=== PATIENT | male | born 1990 | race Caucasian/White ===

== ENCOUNTER 2017-07-10 05:00 | Emergency (ER) | payer BC ==
[~2017-07-10] VITALS: Ht 180.3 cm; Wt 63.5 kg
[~2017-07-10 05:00] MED LIST: FLEXERIL PO; IBUPROFEN 800800 M1 PO; MEDROLDOSEPACK PO; MOBIC7.5 M1 PO; NORCO 5-325 TA1 EACH PO
[2017-07-10] MEDS ORDERED: FLEXERIL (05:13)
[2017-07-10] MEDS ORDERED: EC-NAPROSYN500 M1 PO (06:25)
[2017-07-10] MEDS ORDERED: HYDROCODON-ACE1 EAC7 PO (06:25)
[2017-07-10 06:41] VITALS: BP 119/61
== END 2017-07-10 06:41 | disposition home or self-care (01) ==
LOC: M.ERS 05:00
DX: M54.9 Dorsalgia, unspecified (principal)

== ENCOUNTER 2017-07-23 12:32 | Emergency (ER) | payer BC ==
[~2017-07-23] VITALS: Ht 180.3 cm; Wt 63.5 kg
[~2017-07-23 12:32] MED LIST changes: +EC-NAPROSYN500 M1 PO; +FLEXERIL; +HYDROCODON-ACE1 EAC7 PO
[2017-07-23 13:26] LABS: URINE BILIRUBIN NEGATIVE (Negative); URINE BLOOD NEGATIVE (Negative); URINE CLARITY CLEAR; URINE COLOR YELLOW; URINE GLUCOSE-RANDOM NEGATIVE (Negative); URINE KETONES NEGATIVE (Negative); URINE LEUKOCYTES-REFLEX NEGATIVE (Negative); URINE NITRITE-REFLEX NEGATIVE (Negative); URINE PROTEIN NEGATIVE (Negative); URINE SPECIFIC GRAVITY >= 1.030 (1.005-1.030); URINE UROBILINOGEN 0.2 E.U./dl (0.2-1.0)
[2017-07-23] MEDS ORDERED: ZANAFLEX4 MG PO (13:31)
[2017-07-23] MEDS ORDERED: MEDROLDOSEPACK PO (13:31)
[2017-07-23] MEDS ORDERED: NAPROSYN500 MG PO (13:31)
[2017-07-23 13:39] VITALS: BP 122/79
== END 2017-07-23 13:41 | disposition home or self-care (01) ==
LOC: M.ERS 12:32
PROVIDERS: Nurse Practitioner Family
DX: S39.012A Strain of muscle, fascia and tendon of lower back, initial encounter (principal); G89.29 Other chronic pain; F17.210 Nicotine dependence, cigarettes, uncomplicated; X58.XXXA Exposure to other specified factors, initial encounter; Y93.89 Activity, other specified; Y92.89 Other specified places as the place of occurrence of the external cause; Y99.8 Other external cause status

== ENCOUNTER 2017-09-13 10:09 | Emergency (ER) | payer BC ==
[~2017-09-13] VITALS: Ht 180.3 cm; Wt 64.0 kg
[~2017-09-13 10:09] MED LIST changes: +NAPROSYN500 MG PO; +ZANAFLEX4 MG PO
[2017-09-13 10:21] LABS: URINE BILIRUBIN NEGATIVE (Negative); URINE BLOOD NEGATIVE (Negative); URINE CLARITY CLEAR; URINE COLOR YELLOW; URINE GLUCOSE-RANDOM NEGATIVE (Negative); URINE KETONES NEGATIVE (Negative); URINE LEUKOCYTES-REFLEX NEGATIVE (Negative); URINE NITRITE-REFLEX NEGATIVE (Negative); URINE PROTEIN NEGATIVE (Negative); URINE SPECIFIC GRAVITY 1.025 (1.005-1.030)
[2017-09-13 10:32] LABS: ABSOLUTE EOSINOPHILS 0.1 thou/uL (0.0-0.7); ABSOLUTE LYMPHOCYTES 2.1 thou/uL (0.8-5.3); ABSOLUTE MONOCYTES 0.6 thou/uL (0.0-1.2); ABSOLUTE NEUTROPHILS 2.5 thou/uL (1.6-8.1); BASOPHILS 0.3 %; EOSINOPHILS 2.2 %; HEMATOCRIT 43.7 % (42.0-52.0); LYMPHOCYTES 39.3 %; MCH 30.4 pg (26.0-34.0); MCHC 34.3 g/dL (28.0-37.0); MCV 88.5 fL (80.0-100.0); MONOCYTES 10.4 %; MPV 7.9 fl. (7.2-11.1); NUCLEATED RBCS 0 /100WBC; PLATELET COUNT* 235 thou/uL (150-400); POLYS 47.8 %; RBC 4.94 mil/uL (4.50-6.00); RDW-CV 13.3 % (10.5-14.5); WBC 5.3 thou/uL (4.0-11.0)
[2017-09-13 10:44] LABS: CALCIUM 9.5 mg/dL (8.5-10.1); CREATININE 0.7 mg/dL (0.6-1.3); POTASSIUM 3.8 mmol/L (3.5-5.1); TOTAL BILIRUBIN 0.4 mg/dL (<0.1-1.0); TOTAL PROTEIN 7.4 g/dL (6.4-8.2)
[2017-09-13] MEDS ORDERED: ZOFRAN ODT4 MG DISSOLVE (11:09)
[2017-09-13 11:18] VITALS: BP 106/75
== END 2017-09-13 11:19 | disposition home or self-care (01) ==
LOC: M.ERS 10:09
PROVIDERS: Nurse Practitioner Family
DX: K80.20 Calculus of gallbladder without cholecystitis without obstruction (principal); F17.210 Nicotine dependence, cigarettes, uncomplicated; Z90.49 Acquired absence of other specified parts of digestive tract

== ENCOUNTER 2017-09-26 09:32 | Emergency (ER) | payer BC ==
[~2017-09-26] VITALS: Ht 180.3 cm; Wt 62.6 kg
[~2017-09-26 09:32] MED LIST changes: +ZOFRAN ODT4 MG DISSOLVE
[2017-09-26 10:07] VITALS: BP 131/90
== END 2017-09-26 10:08 | disposition home or self-care (01) ==
LOC: M.ERS 09:32
DX: G89.29 Other chronic pain (principal); M54.5 Low back pain; F17.210 Nicotine dependence, cigarettes, uncomplicated; Z90.49 Acquired absence of other specified parts of digestive tract

== ENCOUNTER 2017-10-01 05:09 | Emergency (ER) | payer BC ==
[~2017-10-01] VITALS: Ht 180.3 cm; Wt 63.5 kg
[2017-10-01] MEDS ORDERED: TRAMADOL 50 MG50 MG (05:18)
[2017-10-01] MEDS ORDERED: HYDROCODON-ACE1 EAC7 PO (05:25)
[2017-10-01 05:56] VITALS: BP 157/84
== END 2017-10-01 05:56 | disposition home or self-care (01) ==
LOC: M.ERS 05:09
DX: M54.5 Low back pain (principal); F17.210 Nicotine dependence, cigarettes, uncomplicated; Z90.49 Acquired absence of other specified parts of digestive tract

== ENCOUNTER → 2018-10-18 | Outpatient (CLI) | payer BC ==
[~2018-10-18] MED LIST changes: +LIDOCAINE PAIN1 EACH PO; +MOBIC15 MG PO; +TIZANIDINE PO; +TRAMADOL 50 MG50 MG
== END ==
LOC: M.PC 10:00
DX: M47.816 Spondylosis without myelopathy or radiculopathy, lumbar region (principal)

== ENCOUNTER → 2018-10-20 | Outpatient (CLI) | payer BC | END | disposition home or self-care (01) | LOC: M.PC 04:49 | DX: M54.5 Low back pain (principal); Z79.899 Other long term (current) drug therapy ==

== ENCOUNTER → 2018-11-03 | Outpatient (CLI) | payer BC | END | disposition home or self-care (01) | LOC: M.PC 05:04 | DX: M47.816 Spondylosis without myelopathy or radiculopathy, lumbar region (principal); M54.5 Low back pain; G89.29 Other chronic pain; F17.210 Nicotine dependence, cigarettes, uncomplicated; Z98.890 Other specified postprocedural states; Z90.49 Acquired absence of other specified parts of digestive tract; Z79.899 Other long term (current) drug therapy ==

== ENCOUNTER → 2019-01-10 | Outpatient (CLI) | payer BC | LOC: M.PC 04:34 | DX: K76.0 Fatty (change of) liver, not elsewhere classified (principal); K80.20 Calculus of gallbladder without cholecystitis without obstruction ==

== ENCOUNTER → 2019-01-24 | Outpatient (CLI) | payer BC | END | disposition home or self-care (01) | LOC: M.PC 04:42 | DX: M47.26 Other spondylosis with radiculopathy, lumbar region (principal); G89.29 Other chronic pain; F17.210 Nicotine dependence, cigarettes, uncomplicated; Z79.899 Other long term (current) drug therapy; Z98.890 Other specified postprocedural states; Z90.49 Acquired absence of other specified parts of digestive tract ==

== ENCOUNTER → 2019-02-14 | Outpatient (CLI) | payer BC | LOC: M.PC 00:59 | DX: M51.36 Other intervertebral disc degeneration, lumbar region (principal); M47.816 Spondylosis without myelopathy or radiculopathy, lumbar region; F17.210 Nicotine dependence, cigarettes, uncomplicated; Z79.891 Long term (current) use of opiate analgesic; Z79.899 Other long term (current) drug therapy ==

== ENCOUNTER → 2019-05-04 | Outpatient (CLI) | payer BC | LOC: M.PC 04:29 | DX: M47.896 Other spondylosis, lumbar region (principal); M51.36 Other intervertebral disc degeneration, lumbar region; M79.2 Neuralgia and neuritis, unspecified ==

== ENCOUNTER → 2020-09-12 | Outpatient (CLI) | payer BC | LOC: M.PC 09:10 | PROVIDERS: ATTEND Physical Medicine & Rehabilitation | DX: M47.816 Spondylosis without myelopathy or radiculopathy, lumbar region (principal); M51.36 Other intervertebral disc degeneration, lumbar region; Z79.891 Long term (current) use of opiate analgesic; Z79.899 Other long term (current) drug therapy ==

== ENCOUNTER → 2020-09-26 | Outpatient (CLI) | payer BC | END | disposition home or self-care (01) | LOC: M.PC 09:33 | PROVIDERS: ATTEND Physical Medicine & Rehabilitation | DX: M54.5 Low back pain (principal); M47.816 Spondylosis without myelopathy or radiculopathy, lumbar region; M51.36 Other intervertebral disc degeneration, lumbar region; F17.210 Nicotine dependence, cigarettes, uncomplicated; Z98.890 Other specified postprocedural states; Z79.899 Other long term (current) drug therapy; Z90.49 Acquired absence of other specified parts of digestive tract ==

== ENCOUNTER → 2020-10-10 | Outpatient (CLI) | payer BC ==
[~2020-10-10] MED LIST changes: +IBUPROFEN 400400 M1 PO; +VICODIN HP 10-1 EAC1 PO
== END | disposition home or self-care (01) ==
LOC: M.PC 09:20
PROVIDERS: ATTEND Physical Medicine & Rehabilitation
DX: M47.816 Spondylosis without myelopathy or radiculopathy, lumbar region (principal); M51.36 Other intervertebral disc degeneration, lumbar region; M54.5 Low back pain; G62.9 Polyneuropathy, unspecified; Z98.890 Other specified postprocedural states; Z79.899 Other long term (current) drug therapy; Z90.49 Acquired absence of other specified parts of digestive tract; F17.210 Nicotine dependence, cigarettes, uncomplicated

== ENCOUNTER → 2020-10-29 | Outpatient (CLI) | payer BC | LOC: M.LAB 12:42 | PROVIDERS: ATTEND Physical Medicine & Rehabilitation | DX: Z01.812 Encounter for preprocedural laboratory examination (principal); Z20.822 Contact with and (suspected) exposure to COVID-19 ==